=== PATIENT | female | born 1960 | race American Indian/Alaskan Native ===

== ENCOUNTER 2017-05-12 19:06 | Emergency (ER) | payer OTHER ==
[2017-05-12] MEDS ORDERED: MOTRIN PO ONE (21:32)
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
[2017-05-12 23:44] VITALS: BP 150/83
== END 2017-05-12 23:43 | disposition home or self-care (01) ==
LOC: ED 19:06
DX: S16.1XXA Strain of muscle, fascia and tendon at neck level, initial encounter (principal); G44.319 Acute post-traumatic headache, not intractable; V89.2XXA Person injured in unspecified motor-vehicle accident, traffic, initial encounter; Y93.89 Activity, other specified; Y99.9 Unspecified external cause status; Y92.410 Unspecified street and highway as the place of occurrence of the external cause
CPT/HCPCS: 70450; 72125